=== PATIENT | female | born 1985 | race Two or more races ===

== ENCOUNTER 2016-03-05 20:47 | Emergency (ER) | payer MEDICAID ==
[2016-03-05 20:58] VITALS: RESP 16
--- NOTE | 2016-03-05 21:43 | DX ---
Chest, PA and Lateral History: Cough x 2 weeks. Chest pain. Findings: There is moderate bronchial wall thickening. Lung volumes are mildly prominent. There is no focal consolidation, infiltrate or effusion. Heart size is small, consistent with the large lung vol umes.. There is no pneumothorax or pneumomediastinum.>] There is a likely old mild compression abnor mality of T11. Impression: Airways disease.
--- NOTE | 2016-03-05 22:37 | EDPHY ---
H & P Stated Complaint: cough, n/v Time Seen by Provider: 03/05/16 21:24 HPI/ROS: Chief complaint: Cold symptoms History of present illness: 30-year-old female presents to the emergency department for evaluation of cold symptoms. Patient reports the onset of symptoms over the last 2 weeks. Symptoms been slowly worsening. She primarily will reports a cough. Primarily nonproductive cough. She states sometimes she coughs so hard she comes nauseated and started vomiting. She has also had some tactile fevers. She denies respiratory distress or rashes. - Personal History LMP (Females 10-55): Now Current Tetanus/Diphtheria Vaccine: Yes Current Tetanus Diphtheria and Acellular Pertussis (TDAP): Yes Tetanus Vaccine Date: 2011 - Medical/Surgical History Hx Asthma: Yes Hx Chronic Respiratory Disease: No Hx Diabetes: No Hx Cardiac Disease: No Hx Renal Disease: No Hx Cirrhosis: No Hx Alcoholism: No Hx HIV/AIDS: No Hx Splenectomy or Spleen Trauma: No Other PMH: cholecystectomy, tubiligation, D&C, depression, anxiety, asthma - Social History Smoking Status: Never smoked - Physical Exam Exam: General Appearance: Alert, nontoxic. Eyes: Pupils equal and round no injection. ENT: Tympanic membranes, external auditory canals, external ears and surrounding soft tissue including over the mastoids are unremarkable. Nasopharynx is not injected. There is no rhinorrhea. Oropharynx is injected. There is no edema. There is no exudate. There is no asymmetry. The uvula is midline. No elevation of the tongue. There is no hoarseness, no drooling, no trismus, no stridor. Respiratory: Chest is non tender, lungs are clear to auscultation. Cardiac: regular rate and rhythm Musculoskeletal: Neck is supple and non tender. Extremities have full range of motion and are non tender. Skin: No rashes or lesions. Neurological: Alert and oriented. No meningismus. Constitutional: Initial Vital Signs Temperature (C) 36.6 C 03/05/16 20:52 Heart Rate 99 03/05/16 20:52 Respiratory Rate 16 03/05/16 20:52 Blood Pressure 109/79 03/05/16 20:52 O2 Sat (%) 94 03/05/16 20:52 O2 Delivery Mode Room Air Allergies/Adverse Reactions: iodine Allergy (Verified 03/05/16 20:52) nitrofurantoin [From Macrobid] Allergy (Verified 03/05/16 20:52) nitrofurantoin macrocrystalline [From Macrobid] Allergy (Verified 03/05/16 20:52 ) pineapple Allergy (Verified 03/05/16 20:52) Home Medications: Medication Instructions Recorded AZITHROMYCIN [Z-PACK] 250 mg PO DAILY #6 tab 03/05/16 Guaifenesin/Codeine Phosphate 10 ml PO Q6 #120 liquid 03/05/16 [Codeine-Guaifen 10-100 mg/5 ml] Medical Decision Making - Diagnostics Imaging: Chest x-ray with airway disease ED Course/Re-evaluation: Patient seen under the supervision of my secondary supervising physician Dr. Rachel Carlson. Patient presents to the emergency department for persistent cold symptoms over the last 2 weeks. Patient is nontoxic. Chest x-ray consistent with airway disease. Believe she is appropriate for outpatient management. Symptomatic care including the use of cough medication is discussed. Given prolonged symptoms I will treat with a Z-Bijan. Further home care is discussed including hydration and rest. She is asked to follow up with a primary care doctor for recheck. Strict return precautions are given. Patient voiced understanding and agreement with plan. Departure - Departure Disposition: Home, Routine, Self-Care Clinical Impression: Acute bronchitis Qualifiers: Bronchitis organism: unspecified organism Qualifier Code: (J20.9) Acute bronchitis, unspecified Condition: Good Instructions: Acute Bronchitis (ED) Additional Instructions: Follow-up with her primary care doctor next week for recheck Use the inhaler you have as needed for symptom control Take all antibiotics as prescribed until finished even if feeling better If symptoms worsen or new symptoms develop return to the emergency department for recheck Referrals: Crista Girard MD [Primary Care Provider] - As per Instructions Prescriptions: Guaifenesin/Codeine Phosphate [Codeine-Guaifen 10-100 mg/5 ml] 10 ml PO Q6 #120 liquid AZITHROMYCIN [Z-PACK] 250 mg PO DAILY #6 tab
[2016-03-05 22:44] VITALS: BP 110/87; PULSE 76; TEMP 98.1; O2SAT 98
== END 2016-03-05 22:43 | disposition home or self-care (01) ==
DX: J20.9 Acute bronchitis, unspecified (principal); J45.909 Unspecified asthma, uncomplicated

== ENCOUNTER 2016-03-10 20:21 | Emergency (ER) | payer MEDICAID ==
[2016-03-10 20:36] VITALS: RESP 16
[2016-03-10] MEDS ORDERED: IPRATROPIUM/ALBUTEROL 3 ML DEYVIAL IH ONE (20:53)
[2016-03-10 21:06] LABS: COLOR YELLOW; LEUKOCYTE ESTERASE,URINE NEGATIVE (NEGATIVE); NITRITE,URINE NEGATIVE (NEGATIVE)
[2016-03-10] MEDS ORDERED: ALBUTEROL INH PREPACK MDI TAKEHOME ONE (21:46)
--- NOTE | 2016-03-10 21:46 | EDPHY ---
[id number] (Females 10-55): Now Current Tetanus/Diphtheria Vaccine: Yes Current Tetanus Diphtheria and Acellular Pertussis (TDAP): Yes Tetanus Vaccine Date: 2011 - Medical/Surgical History Hx Asthma: Yes Hx Chronic Respiratory Disease: No Hx Diabetes: Yes Hx Cardiac Disease: No Hx Renal Disease: No Hx Cirrhosis: No Hx Alcoholism: No Hx HIV/AIDS: No Hx Splenectomy or Spleen Trauma: No Other PMH: cholecystectomy, tubiligation, D&C, depression, anxiety, asthma - Social History Smoking Status: Never smoked Time Seen by Provider: 03/10/16 20:37 HPI/ROS: Chief complaint: Persistent cough History of present illness: This is a 30-year-old female who returns to the emergency department for a persistent cough. Patient was seen 5 days ago by myself. She is diagnosed with an acute bronchitis. She was started on azithromycin and prescribed a cough medication. She just started the Z-Bijan 2 days ago and is currently taking it. She has been unable to get the cough medication filled. She initially had an inhaler which was using but has run out of it. She states sometimes she coughs so much that she get occasionally has some mild incontinence. She denies other associated signs or symptoms: No fevers, no trouble breathing, no other urinary symptoms including no pain with urination. Review of systems: A 10 point review of systems was obtained and other than described above was negative (Wyatt Dorantes) - Physical Exam Exam: General Appearance: Alert and no distress. Eyes: Pupils equal and round no injection. ENT: Tympanic membranes, external auditory canals, external ears and surrounding soft tissue including over the mastoids are unremarkable. Nasopharynx is not injected. There is no rhinorrhea. Oropharynx is not injected. There is no edema. There is no exudate. There is no asymmetry. The uvula is midline. No elevation of the tongue. There is no hoarseness, no drooling, no trismus, no stridor. Respiratory: Chest is non tender, lungs are clear to auscultation. Cardiac: regular rate and rhythm Musculoskeletal: Neck is supple and non tender. Extremities have full range of motion and are non tender. Skin: No rashes or lesions. Neurological: Alert and oriented. No meningismus. (Wyatt Dorantes) Constitutional: Initial Vital Signs Temperature (C) 36.5 C 03/10/16 20:33 Heart Rate 75 03/10/16 20:33 Respiratory Rate 16 03/10/16 20:33 Blood Pressure 124/83 H 03/10/16 20:33 O2 Sat (%) 93 03/10/16 20:33 O2 Delivery Mode Room Air Allergies/Adverse Reactions: iodine Allergy (Verified 03/10/16 20:32) nitrofurantoin [From Macrobid] Allergy (Verified 03/10/16 20:32) nitrofurantoin macrocrystalline [From Macrobid] Allergy (Verified 03/10/16 20:32 ) pineapple Allergy (Verified 03/10/16 20:32) Home Medications: Medication Instructions Recorded AZITHROMYCIN [Z-PACK] 250 mg PO DAILY #6 tab 03/05/16 Guaifenesin/Codeine Phosphate 10 ml PO Q6 #120 liquid 03/05/16 [Codeine-Guaifen 10-100 mg/5 ml] Benzonatate [Tessalon Pearles (RX)] 100 mg PO TID #15 cap 03/10/16 Medical Decision Making ED Course/Re-evaluation: Patient seen under the supervision of my secondary supervising physician Dr. Solitario Milton. Patient presents to the emergency department for persistent cough. She is currently on antibiotics. She is not taking cough medication. Patient is nontoxic. Afebrile and vital signs are stable. Benign physical exam. Chest x-ray unchanged from previous x-ray. Urinalysis unremarkable. Patient is given a refill of her albuterol. She is prescribed Tessalon Perles. Home care is discussed. Return precautions are given. Patient voiced understanding and agreement with plan. (Wyatt Dorantes) I did not see this patient while she was in the emergency department. However her care was discussed with the PA while the patient was in the department. I agree with treatment plan and management (Solitario Milton) Differential Diagnosis: Included but not limited to bronchitis, pneumonia, , asthma exacerbation (Wyatt Dorantes) - Data Points Laboratory Results: 03/10/16 21:00 Urine Color YELLOW Urine Appearance CLEAR Urine pH 6.0 (5.0-7.5) Ur Specific [place] 1.018 (1.002-1.030) Urine Protein NEGATIVE (NEGATIVE) Urine Ketones NEGATIVE (NEGATIVE) Urine Blood NEGATIVE (NEGATIVE) Urine Nitrate NEGATIVE (NEGATIVE) Urine Bilirubin NEGATIVE (NEGATIVE) Urine Urobilinogen NEGATIVE EU (0.2-1.0) Ur Leukocyte Esterase NEGATIVE (NEGATIVE) Ur Culture Indicated? NOT INDICATED (NI) Urine Glucose NEGATIVE (NEGATIVE) Urine Test NEGATIVE Medications Given: Discontinued Medications Albuterol Sulfate (Proventil Inh Prepack) 1 mdi TAKEHOME EDNOW ONE Stop: 03/10/16 21:47 Last Admin: 03/10/16 21:56 Dose: 1 mdi Albuterol/Ipratropium (Duoneb) 3 ml IH EDNOW ONE Stop: 03/10/16 20:54 Last Admin: 03/10/16 21:02 Dose: 3 ml Departure - Departure Disposition: Home, Routine, Self-Care Clinical Impression: Cough Condition: Good Instructions: Acute Cough (ED) Additional Instructions: Follow-up with your primary care doctor for recheck Finish the Z-Bijan as prescribed If symptoms worsen or new symptoms develop return to the emergency department for recheck Referrals: Crista Girard MD [Primary Care Provider] - As per Instructions Prescriptions: Benzonatate [Tessalon Pearkiley (RX)] 100 mg PO TID #15 cap
--- NOTE | 2016-03-10 22:00 | DX ---
PA and Lateral Chest March 10, 2016 at 2052 hours Clinical Indications: Uncontrollable coughing for two days. Comparison: March 05, 2016. Findings: The lungs are clear, and no masses are found. Very mild central airways disease is presen t. The heart and pulmonary vessels are normal. There are no pleural effusions and no pneumothorax. The bones are unremarkable for this age. Impression: Mild airways disease, unchanged from five days prior.
[2016-03-10 22:10] VITALS: BP 110/59; PULSE 99; TEMP 98.4; O2SAT 95
== END 2016-03-10 22:09 | disposition home or self-care (01) ==
DX: R05 Cough (principal); J45.909 Unspecified asthma, uncomplicated; E11.9 Type 2 diabetes mellitus without complications

== ENCOUNTER 2016-03-15 02:30 | Emergency (ER) | payer MEDICAID ==
[2016-03-15] MEDS ORDERED: IPRATROPIUM/ALBUTEROL 3 ML DEYVIAL ONE (02:39)
[2016-03-15] MEDS ORDERED: IPRATROPIUM/ALBUTEROL 3 ML DEYVIAL IH ONE (02:42)
[2016-03-15] MEDS ORDERED: ALBUTEROL INH PREPACK MDI TAKEHOME ONE (03:27)
--- NOTE | 2016-03-15 03:28 | EDPHY ---
H & P Stated Complaint: asthma exacerbation ran out of MDI 4 days ago Time Seen by Provider: 03/15/16 03:19 HPI/ROS: HPI The patient presents with cough and shortness of breath which have been present for the last 1 week. The cough is intermittent, dry, associated with wheezing and moderate in severity. She has been seen in the emergency room 2 times previously for this. Today she is brought in by ambulance by the paramedics from her halfway. She has not had any fevers or chills, weight loss, malaise. She does not have any chest pain. She has a history of asthma. She ran out of her albuterol inhaler 2 days ago she says. She was given a prescription for azithromycin, however she lost this.. REVIEW OF SYSTEMS Constitutional: No fever, no chills. Eyes: No discharge. ENT: No sore throat. Cardiovascular: No chest pain, no palpitations. Respiratory: See HPI Gastrointestinal: No abdominal pain, no vomiting. Genitourinary: No hematuria. Musculoskeletal: No back pain. Skin: No rashes. Neurological: No headache. PMHx: Asthma Soc Hx: Currently residing in a halfway PHYSICAL General Appearance: Alert, no distress Eyes: Pupils equal and round no pallor or injection ENT, Mouth: Mucous membranes moist Respiratory: There are no retractions, lungs are clear to auscultation Cardiovascular: Regular rate and rhythm Gastrointestinal: Abdomen is soft and non-tender, no masses, bowel sounds normal Neurological: A&O, moves all extremities Skin: Warm and dry, no rashes Musculoskeletal: Neck is supple non tender Extremities: symmetrical, full range of motion Psychiatric: Patient is oriented X 3, there is no agitation Source: Patient Exam Limitations: No limitations - Personal History LMP (Females 10-55): 1-7 Days Ago Current Tetanus/Diphtheria Vaccine: Yes Current Tetanus Diphtheria and Acellular Pertussis (TDAP): Yes Tetanus Vaccine Date: 2011 - Medical/Surgical History Hx Asthma: Yes Hx Chronic Respiratory Disease: No Hx Diabetes: Yes Hx Cardiac Disease: No Hx Renal Disease: No Hx Cirrhosis: No Hx Alcoholism: No Hx HIV/AIDS: No Hx Splenectomy or Spleen Trauma: No Other PMH: cholecystectomy, tubiligation, D&C, depression, anxiety, asthma - Social History Smoking Status: Never smoked Constitutional: Initial Vital Signs Temperature (C) 36.6 C 03/15/16 02:31 Heart Rate 104 H 03/15/16 02:31 Respiratory Rate 18 03/15/16 02:31 Blood Pressure 123/90 H 03/15/16 02:31 O2 Sat (%) 92 03/15/16 02:31 O2 Delivery Mode Room Air O2 (L/minute) 2 Allergies/Adverse Reactions: iodine Allergy (Verified 03/10/16 20:32) nitrofurantoin [From Macrobid] Allergy (Verified 03/10/16 20:32) nitrofurantoin macrocrystalline [From Macrobid] Allergy (Verified 03/10/16 20:32 ) pineapple Allergy (Verified 03/10/16 20:32) Home Medications: Medication Instructions Recorded AZITHROMYCIN [Z-PACK] 250 mg PO DAILY #6 tab 03/05/16 Guaifenesin/Codeine Phosphate 10 ml PO Q6 #120 liquid 03/05/16 [Codeine-Guaifen 10-100 mg/5 ml] Benzonatate [Tessalon Pearles (RX)] 100 mg PO TID #15 cap 03/10/16 AZITHROMYCIN [Z-PACK] 250 mg PO DAILY #6 tab 03/15/16 Albuterol 17 gm IH Q4H PRN #1 aerosol 03/15/16 Medical Decision Making Differential Diagnosis: This is a 30-year-old female with asthma brought in by ambulance from homeless halfway for cough and shortness of breath. In the ambulance she received a DuoNeb. She has been evaluated in the emergency room twice previously with normal chest x-ray. Here, she is sleeping, not hypoxic or tachycardic. Her lungs sound clear. She likely has an asthma exacerbation. I have considered viral URI and pneumonia as well. I will refill her albuterol inhaler and send her home with an inhaler. I do not believe her asthma exacerbation is severe enough to require prednisone. I will refill her azithromycin per her request she lost her prescription. - Data Points Medications Given: Discontinued Medications Albuterol Sulfate (Proventil Inh Prepack) 1 mdi TAKEHOME EDNOW ONE Stop: 03/15/16 03:28 Last Admin: 03/15/16 03:43 Dose: 1 mdi Albuterol/Ipratropium (Duoneb) 3 ml IH EDNOW ONE Stop: 03/15/16 02:43 Last Admin: 03/15/16 02:44 Dose: 3 ml Departure - Departure Disposition: Home, Routine, Self-Care Clinical Impression: Exacerbation of asthma Condition: Good Instructions: Asthma (ED) Referrals: Crista Girard MD [Primary Care Provider] - As per Instructions Prescriptions: Albuterol 17 gm IH Q4H PRN #1 aerosol PRN Reason: Wheezing AZITHROMYCIN [Z-PACK] 250 mg PO DAILY #6 tab
[2016-03-15 03:47] VITALS: BP 124/78; PULSE 82; RESP 16; TEMP 97.5; O2SAT 93
== END 2016-03-15 04:14 | disposition home or self-care (01) ==
LOC: EDUNIT#
DX: J45.901 Unspecified asthma with (acute) exacerbation (principal); E11.9 Type 2 diabetes mellitus without complications

== ENCOUNTER 2016-03-27 22:53 | Emergency (ER) | payer MEDICAID ==
--- NOTE | 2016-03-27 22:59 | EDPHY ---
H & P HPI/ROS: CHIEF COMPLAINT: Dyspnea HISTORY OF PRESENT ILLNESS: The patient is a 30-year-old female with a history of mild asthma who comes to the emergency department complaining of wheezing. She states that she has had bronchitis for about a month. She has a prescription for an inhaler but does not currently have 1 available. She does not use and most days. She has been afebrile. She denies chest pain. No abdominal pain. She was given 125 mg IV Solu-Medrol by EMS as well as a DuoNeb. She is now feeling much better. She was saturating 90% on room air prior to their treatment. REVIEW OF SYSTEMS: Constitutional: denies: chills, fever, recent illness, recent injury EENTM: denies: blurred vision, double vision, nose congestion Respiratory: denies: cough, shortness of breath Cardiac: denies: chest pain, irregular heart rate, lightheadedness, palpitations Gastrointestinal/Abdominal: denies: abdominal pain, diarrhea, nausea, vomiting, blood streaked stools Genitourinary: denies: dysuria, frequency, hematuria, pain Musculoskeletal: denies: joint pain, muscle pain Skin: denies: lesions, rash, jaundice, bruising Neurological: denies: headache, numbness, paresthesia, tingling, dizziness, weakness Hematologic/Lymphatic: denies: blood clots, easy bleeding, easy bruising Immunologic/allergic: denies: HIV/AIDS, transplant EXAM: GENERAL: Well-appearing, well-nourished and in no acute distress. HEAD: Atraumatic, normocephalic. EYES: Pupils equal round and reactive to light, extraocular movements intact, sclera anicteric, conjunctiva are normal. ENT: TMs normal, nares patent, oropharynx clear without exudates. Moist mucous membranes. NECK: Normal range of motion, supple without lymphadenopathy or JVD. LUNGS: Bilateral inspiratory and expiratory wheezes and mild rhonchi. HEART: Regular rate and rhythm without murmurs, rubs or gallops. ABDOMEN: Soft, nontender, normoactive bowel sounds. No guarding, no rebound. No masses appreciated. BACK: No CVA tenderness, no spinal tenderness, step-offs or deformities EXTREMITIES: Normal range of motion, no pitting or edema. No clubbing or cyanosis. NEUROLOGICAL: Cranial nerves II through XII grossly intact. Normal speech, normal gait. 5/5 strength, normal movement in all extremities, normal sensation PSYCH: Normal mood, normal affect. SKIN: Warm, dry, normal turgor, no visible rashes or lesions. Source: Patient Exam Limitations: No limitations - Personal History Tetanus Vaccine Date: 2011 - Medical/Surgical History Hx Asthma: Yes Hx Chronic Respiratory Disease: No Hx Diabetes: Yes Hx Cardiac Disease: No Hx Renal Disease: No Hx Cirrhosis: No Hx Alcoholism: No Hx HIV/AIDS: No Hx Splenectomy or Spleen Trauma: No Other PMH: cholecystectomy, tubiligation, D&C, depression, anxiety, asthma - Family History Significant Family History: Hypertension - Social History Smoking Status: Never smoked Alcohol Use: Sober Drug Use: None Constitutional: Initial Vital Signs Temperature (C) 36.3 C 03/27/16 22:55 Heart Rate 78 03/27/16 22:55 Respiratory Rate 16 03/27/16 22:55 Blood Pressure 101/52 L 03/27/16 22:55 O2 Sat (%) 99 03/27/16 22:55 O2 Delivery Mode Room Air Allergies/Adverse Reactions: iodine Allergy (Verified 03/27/16 23:15) nitrofurantoin [From Macrobid] Allergy (Verified 03/27/16 23:15) nitrofurantoin macrocrystalline [From Macrobid] Allergy (Verified 03/27/16 23:15 ) pineapple Allergy (Verified 03/27/16 23:15) Home Medications: Medication Instructions Recorded Albuterol 17 gm IH Q4H PRN #1 aerosol 03/15/16 AZITHROMYCIN [Z-PACK] 250 mg PO DAILY #4 tab 03/27/16 Albuterol [Proventil Inhaler] 1 - 2 puffs IH Q4H #1 mdi 03/27/16 predniSONE 60 mg PO DAILY #15 tab 03/27/16 Medical Decision Making ED Course/Re-evaluation: 11:20 p.m. the patient continues to wheeze. Her oxygen saturations 90% on room air. I will treat with a 2nd DuoNeb and azithromycin for her rhonchi. The patient did complete a course of azithromycin a few weeks ago and states that She improved significantly and that it took her yellow mucus away. I will put her through a 2nd because she still has rhonchi and may need a longer course.. Differential Diagnosis: Partial list of the Differential diagnosis considered include but were not limited to; asthma, bronchitis and although unlikely based on the history and physical exam, I also considered pneumonia, PE, pneumothorax, acute coronary disease, sepsis. I discussed these differential diagnoses and the plan with the patient as well as the usual and expected course. The patient understands that the diagnosis is provisional and that in medicine we are not always correct and that further workup is often warranted. Usual and customary warnings were given. All of the patient's questions were answered. The patient was instructed to return to the emergency department should the symptoms at all worsen or return, otherwise to followup with the physician as we discussed. - Data Points Medications Given: Discontinued Medications Albuterol (Proventil Neb) 3 ml IH EDNOW ONE Stop: 03/27/16 23:21 Last Admin: 03/27/16 23:36 Dose: 3 ml Azithromycin (Zithromax) 500 mg PO EDNOW ONE PRN Reason: Protocol Stop: 03/27/16 23:37 Last Admin: 03/27/16 23:39 Dose: 500 mg Departure - Departure Disposition: Home, Routine, Self-Care Clinical Impression: Exacerbation of asthma Acute bronchitis Qualifiers: Bronchitis organism: unspecified organism Qualifier Code: (J20.9) Acute bronchitis, unspecified Condition: Fair Instructions: Asthma (ED), Acute Bronchitis (ED) Referrals: NONE *PRIMARY CARE P,. [Primary Care Provider] - As per Instructions [facility] [Outside] - As per Instructions Prescriptions: Albuterol [Proventil Inhaler] 1 - 2 puffs IH Q4H #1 mdi AZITHROMYCIN [Z-PACK] 250 mg PO DAILY #4 tab predniSONE 60 mg PO DAILY #15 tab
[2016-03-27 23:07] VITALS: RESP 16
[2016-03-27] MEDS ORDERED: ALBUTEROL 3 ML DEYVIAL IH ONE (23:20)
[2016-03-27] MEDS ORDERED: AZITHROMYCIN IV 500 MG in D5W 250 ML IV ONE (23:21)
[2016-03-27] MEDS ORDERED: AZITHROMYCIN 250 MG TAB PO ONE ×2 (23:36→23:39)
--- NOTE | 2016-03-27 23:48 | DX ---
Chest, Two Views at 2257 hours History: Dyspnea. Comparison: March 10, 2016 Findings: Cardiac silhouette is within normal range. Bilateral peribronchial thickening. No pneumonia , congestive heart failure, pleural effusion, or pneumothorax. Impression: 1. Bronchitis. 2. No definite pneumonia.
[2016-03-27 23:54] VITALS: BP 112/73; PULSE 83; TEMP 97.9; O2SAT 92
== END 2016-03-27 23:56 | disposition home or self-care (01) ==
LOC: EDUNIT#
DX: J45.901 Unspecified asthma with (acute) exacerbation (principal); J20.9 Acute bronchitis, unspecified; E11.9 Type 2 diabetes mellitus without complications
CPT/HCPCS: J0456